=== PATIENT | male | born 1945 | race African-American/Black ===

== ENCOUNTER → 2019-12-15 | Outpatient (CLI) | payer MEDICARE, OTHER ==
[~2019-12-15] MED LIST: BRIMONIDINE TARTRATE OPHTHALMIC; DIOVAN320 MG PO; HYDROCHLOROTHIA25 M2 PO; HYDROCODONE-APA1 TA1 PO; NORVASC10 MG PO; PENICILLIN VK250 MG PO; TIMOPTIC2.5 M1 OPHTHALMIC; prednisolone OPHTHALMIC
== END ==
LOC: M.PC 09:29
DX: M51.16 Intervertebral disc disorders with radiculopathy, lumbar region (principal); M48.061 Spinal stenosis, lumbar region without neurogenic claudication; M51.17 Intervertebral disc disorders with radiculopathy, lumbosacral region; M47.26 Other spondylosis with radiculopathy, lumbar region; I10 Essential (primary) hypertension; Z79.899 Other long term (current) drug therapy

== ENCOUNTER 2020-01-15 13:40 | Observation (INO) | payer MEDICARE, OTHER ==
[~2020-01-15] VITALS: Ht 188 cm; Wt 97.1 kg
[~2020-01-15 13:40] MED LIST changes: +TIMOLOL MALEATE5 M2 OPHTHALMIC; -TIMOPTIC2.5 M1 OPHTHALMIC
[2020-01-15 13:52] VITALS: BP 155/92
[2020-01-15 14:18] LABS: INFLUENZA A ANTIGEN Negative (Negative)
[2020-01-15 14:56] LABS: ABSOLUTE BASOPHILS 0.1 thou/uL (0.0-0.2); ABSOLUTE MONOCYTES 0.6 thou/uL (0.0-1.2); ABSOLUTE NEUTROPHILS 5.9 thou/uL (1.6-8.1); BASOPHILS 0.7 %; EOSINOPHILS 0.3 %; HEMATOCRIT 45.3 % (42.0-52.0); HEMOGLOBIN 15.4 gm/dL (14.0-18.0); LYMPHOCYTES 23.6 %; MCH 31.8 pg (26.0-34.0); MCHC 33.9 g/dL (28.0-37.0); MCV 93.6 fL (80.0-100.0); MONOCYTES 6.6 %; MPV 9.8 fl. (7.2-11.1); NUCLEATED RBCS 0 /100WBC; PLATELET COUNT* 212 thou/uL (150-400); POLYS 68.8 %; RBC 4.84 mil/uL (4.50-6.00); RDW-CV 13.2 % (10.5-14.5); WBC 8.5 thou/uL (4.0-11.0)
[2020-01-15 15:02] LABS: CALCIUM 9.2 mg/dL (8.5-10.1); CREATININE 1.2 mg/dL (0.6-1.3); POTASSIUM 3.6 mmol/L (3.5-5.1)
[2020-01-15 17:24] VITALS: BP 134/71
--- NOTE | 2020-01-15 17:40 | NUR ---
pt to room,.spouse at bedside, appears alert o x 4. denies chest pain, SOB, pain or discomfort, PIV appears patent, positive influenza b, resp ISOLATION
[2020-01-15 18:30] VITALS: BP 145/56
[2020-01-15 20:00] VITALS: BP 141/75
[2020-01-15 20:33] LABS: URINE BILIRUBIN NEGATIVE (Negative); URINE BLOOD NEGATIVE (Negative); URINE CLARITY CLEAR; URINE COLOR YELLOW; URINE GLUCOSE-RANDOM NEGATIVE (Negative); URINE KETONES NEGATIVE (Negative); URINE LEUKOCYTES NEGATIVE (Negative); URINE NITRITE NEGATIVE (Negative); URINE PROTEIN NEGATIVE (Negative); URINE UROBILINOGEN >= 8.0 E.U./dl (0.2-1.0)
[2020-01-16] VITALS: BP 114/71
[2020-01-16 04:00] VITALS: BP 115/70
--- NOTE | 2020-01-16 04:48 | NUR ---
ASSUMED PT CARE AT APPROX 1930. PT IS AWAKE AND ORIENTED X4. VSS ON ROOM AIR, CARIDAC MONITOR IN PLACE TRACING SR w/ OCCASIONAL PVCs. PT DENIES CHEST PAIN/DISCOMFORT. PT IS ABLE TO SLLEP MOST OF THE NIGHT. CALL LIGHT WITHIN REACH. HOURLY ROUNDING DONE FOR PT SAFETY. FALL PRECAUTIONS IN PLACE.
[2020-01-16 10:25] VITALS: BP 127/75
[2020-01-16] MEDS ORDERED: MEDROLDOSEPACK PO (10:52)
[2020-01-16] MEDS ORDERED: NITROGLYCERIN0.4 MG SUBLING (10:52)
[2020-01-16] MEDS ORDERED: ASA81BEC PO (10:53)
[2020-01-16 11:28] VITALS: BP 127/75
--- NOTE | 2020-01-16 14:52 | NUR ---
ASSUMED CARE OF PATIENT AT APPROX 0730. ALERT AND ORIENTED X4. ASSESSMENT COMPLETED AND CHARTED. VSS ON ROOM AIR. FLUIDS INFUSED ORDERED. PATIENT DISCHARGED AT 1422 WITH ALL PERSONAL BELONGINGS AND DISCHARGE INFORMATION.
--- NOTE | 2020-01-16 15:07 | EKG ---
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 Andreas Bernal MD, [facility] /EPI
--- NOTE | 2020-01-16 15:07 | EKG ---
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: [place] : 1945 Requested By: Von Scales Order Number: [id number] MD: Andreas Bernal Measurements Intervals [place] Rate: 71 P: 46 MA: 200 QRS: -26 QRSD: 111 T: 5 QT: 393 QTc: 428 Interpretive Statements Sinus rhythm Borderline left axis deviation Minimal ST elevation, anterior leads No previous ECG available for comparison Electronically Signed On 01-16-2020 15:06:25 SPIRAL WEAVER by Andreas Bernal [email or web address] <ELECTRONICALLY SIGNED> By: Jermaine Bernal MD, [facility] 01/16/20 1506 161 161 Jermaine Bernal MD, [facility] /EPI
== END 2020-01-16 14:22 | disposition home or self-care (01) ==
LOC: M.ERS 13:40 → M.TBA-ER 16:30 → M.2W 17:35
PROVIDERS: Nurse Practitioner Psychiatric/Mental Health; Personal Emergency Response Attendant; ADMIT Internal Medicine
DX: J12.9 Viral pneumonia, unspecified (principal); I10 Essential (primary) hypertension; J11.1 Influenza due to unidentified influenza virus with other respiratory manifestations; B34.9 Viral infection, unspecified; R79.89 Other specified abnormal findings of blood chemistry; M54.30 Sciatica, unspecified side; Z82.49 Family history of ischemic heart disease and other diseases of the circulatory system

== ENCOUNTER 2020-10-15 23:28 | Emergency (ER) | payer MEDICARE, OTHER ==
[~2020-10-15] VITALS: Ht 188 cm; Wt 99.8 kg
[~2020-10-15 23:28] MED LIST changes: +ASA81BEC PO; +MEDROLDOSEPACK PO; +NITROGLYCERIN0.4 MG SUBLING
[2020-10-16 00:32] VITALS: BP 145/71
== END 2020-10-16 00:32 | disposition home or self-care (01) ==
LOC: M.ERS 23:28
DX: Z20.828 Contact with and (suspected) exposure to other viral communicable diseases (principal)

== ENCOUNTER 2021-07-25 12:15 | Emergency (ER) | payer MEDICARE, OTHER ==
[~2021-07-25] VITALS: Ht 185.4 cm; Wt 102.1 kg
[2021-07-25] MEDS ORDERED: XARELTO10 MG PO (12:32)
[2021-07-25 13:30] LABS: ABSOLUTE LYMPHOCYTES 1.6 thou/uL (0.8-5.3); ABSOLUTE MONOCYTES 0.6 thou/uL (0.0-1.2); ABSOLUTE NEUTROPHILS 2.8 thou/uL (1.6-8.1); BASOPHILS 0.5 %; EOSINOPHILS 0.1 %; HEMATOCRIT 46.4 % (42.0-52.0); HEMOGLOBIN 15.4 gm/dL (14.0-18.0); MCH 30.6 pg (26.0-34.0); MCHC 33.2 g/dL (28.0-37.0); MCV 92.2 fL (80.0-100.0); MONOCYTES 12.3 %; MPV 8.5 fl. (7.2-11.1); NUCLEATED RBCS 0 /100WBC; PLATELET COUNT* 163 thou/uL (150-400); POLYS 55.1 %; RBC 5.04 mil/uL (4.50-6.00); RDW-CV 13.3 % (10.5-14.5); WBC 5.1 thou/uL (4.0-11.0)
[2021-07-25 13:42] LABS: CALCIUM 9.3 mg/dL (8.5-10.1); CREATININE 1.6 mg/dL (0.6-1.3); POTASSIUM 3.3 mmol/L (3.5-5.1)
[2021-07-25 13:47] LABS: ALBUMIN 3.7 g/dL (3.4-5.0); TOTAL BILIRUBIN 0.8 mg/dL (<0.1-1.0); TOTAL PROTEIN 7.5 g/dL (6.4-8.2)
[2021-07-25 13:56] VITALS: BP 134/84
[2021-07-25 13:57] LABS: URINE BILIRUBIN NEGATIVE (Negative); URINE BLOOD NEGATIVE (Negative); URINE CLARITY CLEAR; URINE COLOR YELLOW; URINE GLUCOSE-RANDOM NEGATIVE (Negative); URINE KETONES NEGATIVE (Negative); URINE LEUKOCYTES-REFLEX NEGATIVE (Negative); URINE NITRITE-REFLEX NEGATIVE (Negative); URINE PROTEIN 1+ (Negative); URINE SPECIFIC GRAVITY >= 1.030 (1.005-1.030)
== END 2021-07-25 13:57 | disposition home or self-care (01) ==
LOC: M.ERS 12:15
PROVIDERS: Emergency Medicine
DX: U07.1 COVID-19 (principal); R53.1 Weakness; R05 Cough; I10 Essential (primary) hypertension; Z79.899 Other long term (current) drug therapy